=== PATIENT | male | born 1950 | race Caucasian/White ===

== ENCOUNTER 2018-05-08 10:32 | Outpatient (CLI) | payer MEDICARE ==
--- NOTE | 2018-05-08 13:27 | RAD ---
LUMBAR SPINE THREE VIEWS: Date: 05-08-18 History: Lumbar spine pain/back pain. Comparison: 07-17-11 FINDINGS: Neutral, lateral flexion and lateral extension radiographs are provided. The neutral lateral exam dem onstrates minimal retrolisthesis at L2-3 measuring approximately 5 mm. There is multilevel degenerative endplate change, disc space narrowing and anterior osteophyte format ion at the thoracolumbar junction. Body habitus limits detailed assessment. Multilevel lower lumbar s pine facet hypertrophic change seen. At L2-3, L3-4 and L5-S1 there is disc space narrowing and anterior osteophyte formation. Upon flexion , anterolisthesis is noted at the L3-4 level measuring 6 mm. The retrolisthesis at L2-3 is no longer visualized. With extension there is no anterolisthesis or retrolisthesis. IMPRESSION: Degenerative changes as detailed above. There is anterolisthesis upon flexion at L3-4 measuring in th e 6 mm range. POS: [facility]
== END 2018-05-08 10:33 | disposition home or self-care (01) ==
LOC: RAD 10:32
PROVIDERS: ATTEND Nurse Practitioner Family
DX: M43.16 Spondylolisthesis, lumbar region (principal); M47.816 Spondylosis without myelopathy or radiculopathy, lumbar region
CPT/HCPCS: 72100

== ENCOUNTER 2018-07-09 03:00 | Outpatient (CLI) | payer MEDICARE ==
[2018-07-09 11:45] LABS: Hemoglobin 13.2 g/dL (14.0-18.0); Mean Corpuscular HGB CONC 32.4 g/dL (32.0-36.0); Mean Corpuscular Hemoglobin 28.7 pg (27.0-31.0); Mean Corpuscular Volume 88.4 fL (78.0-98.0); Mean Platelet Volume 6.8 fL (7.4-10.4); Platelet Count 362 thou/uL (130-400); RBC Distribution Width 13.3 % (11.5-14.5); Red Blood Cell (RBC) Count 4.61 mill/uL (4.70-6.10); White Blood Cell (WBC) Count 12.2 thou/uL (4.8-10.8)
[2018-07-09 12:09] LABS: Anion Gap 12 mmol/L (10-20); BUN (Urea Nitrogen) 17 mg/dL (8.4-25.7); Calc. Creatinine Clearance 0 mL/min (70-130); Calcium 9.6 mg/dL (7.8-10.44); Carbon Dioxide 27 mmol/L (23-31); Chloride 104 mmol/L (98-107); Estimated GFR-MDRD 67; Glucose 99 mg/dL (80-115); Potassium 4.4 mmol/L (3.5-5.1); Sodium 139 mmol/L (136-145)
--- NOTE | 2018-07-11 08:55 | EKG ---
Test Reason : Blood Pressure : / mmHG Vent. Rate : 055 BPM Atrial Rate : 055 BPM P-R Int : 162 ms QRS Dur : 076 ms QT Int : 432 ms P-R-T Axes : 045 032 035 degrees QTc Int : 413 ms Sinus bradycardia Otherwise normal ECG No previous ECGs available Confirmed by DR. Javid PEREZ ([id number]) on 07/11/2018 8:54:52 AM Referred By: BONG Confirmed By:DR. Javid PEREZ
== END 2018-07-09 03:01 | disposition home or self-care (01) ==
LOC: LABBT 03:00
PROVIDERS: ATTEND Neurological Surgery
DX: Z01.818 Encounter for other preprocedural examination (principal); M54.16 Radiculopathy, lumbar region
CPT/HCPCS: 80048; 85027; 93005; 93010

== ENCOUNTER 2018-07-09 10:30 | Inpatient (IN) | payer MEDICARE ==
[2018-07-09 10:40] VITALS: BMI 43.0
[2018-07-16] MEDS ORDERED: CEFAZOLIN 2 GM/50 ML BAG ONE (07:10)
[2018-07-16] MEDS ORDERED: Sodium Chloride 0.9% 10 ML ONE (09:13)
[2018-07-16] MEDS ORDERED: Midazolam HCl 2 mg/2 ml Vial ONE (09:25)
[2018-07-16] MEDS ORDERED: Fentanyl 100 MCG/2 ML VIAL ONE ×3 (09:25→12:38)
[2018-07-16] MEDS ORDERED: Promethazine HCl 25 MG/ML VIAL SLOW IVP PRN (10:00)
[2018-07-16] MEDS ORDERED: Promethazine HCl 25 MG/ML VIAL IM PRN ×2 (10:00→13:40)
[2018-07-16] MEDS ORDERED: Ondansetron HCl/PF 4 MG/2 ML Vial IVP PRN (10:00)
--- NOTE | 2018-07-16 12:30 | OP ---
DATE OF PROCEDURE: 07/16/2018 SEXER: Destiny Hernandez PA-C PROCEDURE: L3-L4 laminectomy, interbody arthrodesis, intervertebral biomechanical device, local morselized autograft, demineralized bone matrix, posterolateral arthrodesis of L3-L4, pedicle screw instrumentation of L3-L4, left L4-L5 laminectomy and diskectomy. DESCRIPTION OF PROCEDURE: The patient was brought to the operating room and intubated. He was rolled in prone position on gel-filled chest rolls. An incision was made exposing L3 through L5 and the level was confirmed by x-ray. We performed complete L4 and inferior L3 laminectomy, so we can completely decompress the central spinal canal at L3-L4. We then exposed the left L4-L5 disk space via laminectomy and identified a superiorly migrated L4-L5 disk herniation and compressing the left L4 nerve. This disk herniation was removed. We next turned our attention to the L3-L4 disk, which was removed completely and the bony endplates were decorticated for the purpose of arthrodesis. An appropriate-sized intervertebral biomechanical PEEK device was brought into the field and filled with demineralized bone matrix, local morselized autograft, and tapped in place securely at L3-L4. Next, pedicle screws were placed at left L3 and left L4 using lateral fluoroscopic guidance, and positioning was confirmed by x-ray. The summer was secured between the screws and connected by nuts, which were final tightened. The wound was then extensively irrigated and maximum hemostasis was secured. Combination of demineralized bone matrix and local morselized autograft was laid to the right lamina and posterolateral surfaces for the purpose arthrodesis. Vancomycin powder was applied and the wound was closed in anatomic layers over a drain. Job ID: [id number]
[2018-07-16] MEDS ORDERED: Ondansetron PF 4 MG/2 ML Vial ONE (13:24)
[2018-07-16] MEDS ORDERED: Glycopyrrolate 0.2 MG/ML 5 ML SYRINGE ONE (13:24)
[2018-07-16] MEDS ORDERED: Rocuronium Bromide 10 MG/ML (10ML VIAL) ONE (13:24)
[2018-07-16] MEDS ORDERED: PROPOFOL 200 MG/20 ML VIAL ONE (13:24)
[2018-07-16] MEDS ORDERED: ePHEDrine 50 MG/ML VIAL ONE (13:24)
[2018-07-16] MEDS ORDERED: tiZANidine HCl 4 MG TAB PO PRN ×2 (13:39→13:40)
[2018-07-16] MEDS ORDERED: Promethazine HCl 12.5 MG SUPP PR PRN (13:40)
[2018-07-16] MEDS ORDERED: HYDROcodone/Acetaminophen 10/325 mg Tablet PO PRN (13:40)
[2018-07-16] MEDS ORDERED: Promethazine 25 MG TAB PO PRN (13:40)
[2018-07-16] MEDS ORDERED: diphenhydrAMINE 25 MG CAP PO PRN (13:40)
[2018-07-16] MEDS ORDERED: Morphine 4 MG/ML VIAL SLOW IVP PRN ×2 (13:40→13:42)
[2018-07-16] MEDS ORDERED: Milk Of Magnesia 30 ML UDCUP PO PRN (13:40)
[2018-07-16] MEDS ORDERED: Mag-Al 1200 mg/1200 mg/30 ML UDCUP PO PRN (13:40)
[2018-07-16] MEDS ORDERED: traMADol HCl 50 MG TAB PO PRN ×2 (13:40)
[2018-07-16] MEDS ORDERED: diphenhydrAMINE 50 MG/ML VIAL IVP PRN (13:40)
[2018-07-16] MEDS ORDERED: Acetaminophen/Codeine 30-300mg Tablet PO PRN (13:40)
[2018-07-16] MEDS ORDERED: Ketorolac Tromethamine 30 MG/ML VIAL IVP PRN (13:41)
[2018-07-16] MEDS ORDERED: Ondansetron PF 4 MG/2 ML Vial IM PRN (13:43)
[2018-07-16] MEDS ORDERED: CEFAZOLIN 2 GM/50 ML-DEXTROSE 2 GM in Premix Bag 1 BAG IVPB SCH (14:00)
[2018-07-16] MEDS: Sodium Chloride 0.9% 1,000 ML IV SCH (16:19)
[2018-07-16] MEDS: Gabapentin 300 MG CAP PO SCH ×2 (16:28→20:16)
[2018-07-16] MEDS: HYDROcodone/Acetaminophen 10/325 mg Tablet PO PRN (17:50)
[2018-07-16] MEDS: CEFAZOLIN 2 GM/50 ML-DEXTROSE 2 GM in Premix Bag 1 BAG IVPB SCH (17:51)
[2018-07-17] MEDS: CEFAZOLIN 2 GM/50 ML-DEXTROSE 2 GM in Premix Bag 1 BAG IVPB SCH ×2 (02:33→10:42)
[2018-07-17] MEDS: HYDROcodone/Acetaminophen 10/325 mg Tablet PO PRN (02:38)
[2018-07-17] MEDS: Sodium Chloride 0.9% 1,000 ML IV SCH (03:17)
[2018-07-17] MEDS: Gabapentin 300 MG CAP PO SCH (08:41)
[2018-07-17 11:28] VITALS: BP 114/71; TEMP 98.1
--- NOTE | 2018-07-17 21:13 | DIS ---
DATE OF ADMISSION: 07/16/2018 DATE OF DISCHARGE: 07/17/2018 The patient is a 68-year-old male status post L3-L4 decompression and fusion and left L4-L5 diskectomy. Following the surgery, he was transitioned to the [facility] floor, where his pain was well controlled with p.o. medications. He was tolerating regular diet and voiding appropriately. He has been ambulating easily throughout the hallways. He did have a JARAD drain placed intraoperatively with only 80 mL of output overnight. The patient is awake, alert, comfortable this morning. He has free active range of motion of all extremities, 5/5 strength throughout. He has normal reflexive. Sensation is intact to light touch. Dressing is dry. There is a small amount of dark red blood in the JARAD drain. We will plan to dismiss the patient to home following removal of the JARAD drain. I have discussed home care precautions. We will follow up in 2 weeks. Job ID: [id number]
== END 2018-07-17 12:40 | disposition home or self-care (01) | DRG 460 ==
LOC: SURG A 07-16 06:56 → EDSTATUS 07-16 10:30 → SURG B 07-16 12:41
PROVIDERS: ADMIT Neurological Surgery; ATTEND Neurological Surgery
PROC: 01NB0ZZ Release Lumbar Nerve, Open Approach (ICD-10-PCS; principal; 2018-07-16)
PROC: 0SG10AJ Fusion of 2 or more Lumbar Vertebral Joints with Interbody Fusion Device, Posterior Approach, Anterior Column, Open Approach (ICD-10-PCS; 2018-07-16)
PROC: 0ST20ZZ Resection of Lumbar Vertebral Disc, Open Approach (ICD-10-PCS; 2018-07-16)
DX: M54.16 Radiculopathy, lumbar region (principal); Z68.41 Body mass index [BMI] 40.0-44.9, adult; E66.01 Morbid (severe) obesity due to excess calories
CPT/HCPCS: 76000; C1713; C1768; J2250; J2270; J2405; J2704; J3010; J3370; J3490

== ENCOUNTER 2018-07-31 15:53 | Outpatient (CLI) | payer MEDICARE ==
--- NOTE | 2018-07-31 17:41 | RAD ---
TWO VIEWS LUMBAR SPINE 07/31/18 INDICATION: Followup surgery. COMPARISON: Prior lumbar spine radiograph dated 05/08/18. FINDINGS: There are laminectomy changes seen at L4 and laminotomy changes seen at L3. There is a left L3-4 post erior lumbar interbody fusion construct. There is an intervertebral disc cage seen left of midline at L3-4. There is surgical skin andrei overlying the posterior L3 through L5 level. There is scattered vascular calcifications. There is moderate spondylosis of the lumbar spine that again appears simila r. IMPRESSION: Interval posterior lumbar interbody fusion at L3-4 with laminectomy change at L4 and laminotomy maria e at L3. POS: [facility]
== END 2018-07-31 15:54 | disposition home or self-care (01) ==
LOC: TBSIIMAG 15:53
PROVIDERS: ATTEND Neurological Surgery
DX: M43.16 Spondylolisthesis, lumbar region (principal); Z98.1 Arthrodesis status
CPT/HCPCS: 72100

== ENCOUNTER 2018-09-17 10:08 | Outpatient (CLI) | payer MEDICARE ==
[~2018-09-17 10:08] MED LIST: Gadobenate Dimeglumine 529 MG/1 ML (20ML VIAL) ONE; Iopamidol 370 76% 100 ML VIAL ONE
--- NOTE | 2018-09-17 11:32 | CT ---
EXAM: CT chest with IV contrast CT abdomen with IV contrast PROVIDED CLINICAL HISTORY: Malignant neoplasm of rectum. Diarrhea and bleeding for 2 months. COMPARISON: None FINDINGS: CT thorax: Minimal linear atelectasis versus scarring is seen at the left lung base with mild bronchiectasis of a single bronchus in the left lower lobe in the region of linear scarring or atelectasis. The lungs are otherwise clear and no pulmonary nodule, mass, or pleural effusion is identified. There is no evidence of lymphadenopathy. There is a circumscribed 3.2 cm hypodense structure seen wit hin the posterior lower mediastinum which is adjacent to the esophagus and may actually be within the wall of the esophagus. 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 Vascular calcifications are seen in the coronary arteries and involving the thoracic aorta. Degenerative changes are seen in the spine. No lytic or sclerotic osseous lesions are appreciated. CT ABDOMEN: Multiple gallbladder calculi are visualized. A 1.5 cm hypodense lesion is seen in the posterior segment right hepatic lobe which does not demonstr ate characteristics compatible with a cyst. Solitary metastatic lesion should be considered. A 2.9 cm heterogeneous nodule is seen involving the left adrenal gland. This cannot be further charac terized without precontrast imaging. A 1.7 cm hypodense lesion in the midportion right kidney with 1.3 cm hypodense lesion midportion left kidney are visualized which demonstrate fluid attenuation compatible with bilateral renal cysts. The spleen, pancreas, right adrenal gland, and opacified small bowel demonstrate a normal CT appearan ce. Vascular calcifications and atherosclerotic plaque are seen in the abdominal aorta and involving visu alized iliac arteries. No enlarged lymph nodes are seen by CT size criteria. No free fluid or fluid collection is seen in th e abdomen. Degenerative changes are seen in the spine. There are postsurgical changes at the L3-4 level related to posterior fusion. Laminectomy defects are seen at these levels. IMPRESSION: 1. Hypodense lesion posterior segment right hepatic lobe which does not demonstrate characteristics s uggestive of a cyst. Solitary metastatic lesion should be considered. 2. Heterogeneous nodule left adrenal gland. Precontrast images are recommended for further characteri zation as a metastatic lesion cannot be excluded. 3. 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 4. No pulmonary nodule or mass is seen in the lungs bilaterally. 5. Bilateral renal cysts. 6. Cholelithiasis.
--- NOTE | 2018-09-17 15:18 | MRI ---
EXAM: MRI of the pelvis without and with contrast HISTORY: Rectal cancer staging COMPARISON: None TECHNIQUE: Multiplanar multisequence MR images were obtained of the pelvis without and with IV contra st. FINDINGS: There is a mass involving the rectum measuring 7.9 cm in length. Invasion of the mesorectal fat: Yes. Approximately 10 mm outside of the serosa of the rectum. Distance of mass from the anal verge: 4.7 cm Closest margin to the mesorectal fascia: 0.2 cm Involvement of adjacent organs: None Pelvic lymph nodes: There is a 9 mm left mesorectal fat lymph node. No pelvic sidewall enlarged lymph nodes are seen. Osseous structures: No marrow signal abnormality Other visualized intrapelvic structures: Unremarkable IMPRESSION: Rectal cancer as above. Staging: T stage: T3c N stage: N1a M stage: Mx
== END 2018-09-17 10:09 | disposition home or self-care (01) ==
LOC: SCSCT 10:08
PROVIDERS: ATTEND Internal Medicine Hematology & Oncology
DX: C20 Malignant neoplasm of rectum (principal); N28.1 Cyst of kidney, acquired; K80.20 Calculus of gallbladder without cholecystitis without obstruction; E27.9 Disorder of adrenal gland, unspecified
CPT/HCPCS: 71260; 72197; 74160

== ENCOUNTER 2018-09-23 13:21 | Outpatient (CLI) | payer MEDICARE ==
--- NOTE | 2018-09-23 13:46 | RAD ---
XR Lumbar Spine 2 Or 3 View: 09/23/2018 12:00 AM CLINICAL INDICATION: Lumbar radiculopathy, back pain, history of recent surgery COMPARISON: None. FINDINGS: Fracture:No fracture. Postoperative fusion of L4-5 with intervening disc space prosthesis is present, with a left vertical summer and left L4 and L5 pedicle screws present, similar appearing, without interval, acute hardware complication. Mild right convexed curvature centered at the upper lumbar spine. Incidental findings:Atherosclerosis IMPRESSION: 1. Stable postoperative lumbar spine.
== END 2018-09-23 13:22 | disposition home or self-care (01) ==
LOC: TBSIIMAG 13:21
PROVIDERS: ATTEND Neurological Surgery
DX: M54.16 Radiculopathy, lumbar region (principal); Z98.890 Other specified postprocedural states
CPT/HCPCS: 72100

== ENCOUNTER 2018-09-24 07:55 | Day surgery (SDC) | payer MEDICARE ==
[2018-09-23 12:35] VITALS: BMI 37.3
[2018-09-24 08:15] LABS: #Basophils 0.1 thou/uL (0.0-0.2); #Eosinphils 0.3 thou/uL (0.0-0.7); #Lymphocytes 2.3 thou/uL (1.20-3.40); #Monocytes 1.1 thou/uL (0.11-0.59); #Neutrophils 7.5 thou/uL (1.40-6.50); %Basophils 0.8 % (0.0-1.0); %Eosinophils 2.3 % (0.0-10.0); %Lymphocytes 20.1 % (21.0-51.0); %Monocytes 9.8 % (0.0-10.0); %Neutrophils 66.9 % (42.0-75.0); Hemoglobin 12.1 g/dL (14.0-18.0); Mean Corpuscular HGB CONC 31.4 g/dL (32.0-36.0); Mean Corpuscular Hemoglobin 26.3 pg (27.0-31.0); Mean Corpuscular Volume 83.8 fL (78.0-98.0); Platelet Count 390 thou/uL (130-400); RBC Distribution Width 13.1 % (11.5-14.5); Red Blood Cell (RBC) Count 4.62 mill/uL (4.70-6.10); White Blood Cell (WBC) Count 11.2 thou/uL (4.8-10.8)
[2018-09-24 08:18] LABS: PTT 27.1 SEC (22.9-36.1); Prothrombin Time 12.8 SEC (12.0-14.7)
[2018-09-24] MEDS ORDERED: Iopamidol 370 76% 100 ML VIAL ONE (11:01)
--- NOTE | 2018-09-24 11:17 | CT ---
CT of abdomen with and without IV contrast: HISTORY: Rectal cancer. Mass. FINDINGS: Minimal atelectasis at the left posterior lung base. The right paraesophageal nonenhancing lesion is partially visualized, stable compared to recent CT exam. Gas containing stones within the gallbladder lumen. The nonenhancing oval low-density lesion within t he lateral aspect of the anterior segment right liver lobe shows subtle peripheral enhancement. It is 0.8 cm length by 1.6 cm depth by 1.2 cm width. Well-circumscribed oval low-density mass of the left adrenal gland is again demonstrated. It is 2.4 c m length by 2.3 cm depth by 2.1 cm width. Precontrast Hounsfield unit measurement equals 2. Arterial phase enhancement equals 44. 15 minute delayed enhancement equals 14. Measurements are consi stent with an adrenal adenoma. Small cysts of the kidneys. Degenerative and postoperative changes lumbar spine. Calcification in the arterial structures. IMPRESSION: 1.Left adrenal mass demonstrates CT characteristics of an adenoma. 2.Low-density liver mass again demonstrated. It was biopsied on the same day. Pathology is pending. 3.Cholelithiasis. 4.Atherosclerosis. Transcribed Date/Time: 09/24/2018 11:38 AM
--- NOTE | 2018-09-24 11:24 | CT ---
CT-guided liver mass biopsy: HISTORY: Liver mass. Rectal cancer. FINDINGS: After explaining the procedure and answering all questions, Limited CT imaging of the liver was perfo rmed. Low density mass was seen within the anterior segment right liver lobe. Sterile technique, buffered local anesthesia, CT guidance, and a lateral approach were used carefully advance a 17-gauge trocar needle into the low density mass. Position was confirmed with CT. A total of 6 18-gauge core biopsy. Specimens were obtained and submitted to Dr. Bernabe from pathology. While the initial samples showed normal liver tissue, the latter samples were shown to contain atypical cells. Needle was removed. Postprocedure imaging shows no evidence of complication. Patient tolerated the pr ocedure well and was returned to the holding area in good condition for further monitoring. IMPRESSION: Technically successful CT-guided biopsy liver mass. Pathology is pending. Transcribed Date/Time: 09/24/2018 11:46 AM
== END 2018-09-24 11:45 | disposition home or self-care (01) ==
LOC: CT 07:55 → EDSTATUS 10:00 → CT 11:45
PROVIDERS: ATTEND Internal Medicine Hematology & Oncology
PROC: 0FB13ZX Excision of Right Lobe Liver, Percutaneous Approach, Diagnostic (ICD-10-PCS; principal; 2018-09-24)
DX: D49.0 Neoplasm of unspecified behavior of digestive system (principal); C20 Malignant neoplasm of rectum; I70.90 Unspecified atherosclerosis; K80.20 Calculus of gallbladder without cholecystitis without obstruction; E27.8 Other specified disorders of adrenal gland; Z79.899 Other long term (current) drug therapy; Z98.1 Arthrodesis status; Z98.890 Other specified postprocedural states
CPT/HCPCS: 36415; 47000; 74170; 77002; 82565; 85025; 85610; 85730; 88307; 88333; 88334; J2250; J3010; Q9967

== ENCOUNTER 2018-09-26 10:06 | Day surgery (SDC) | payer MEDICARE ==
[2018-09-25 12:59] VITALS: BMI 37.2
[~2018-09-26 10:06] MED LIST changes: +Fentanyl 100 MCG/2 ML VIAL ONE; -Gadobenate Dimeglumine 529 MG/1 ML (20ML VIAL) ONE; -Iopamidol 370 76% 100 ML VIAL ONE; +Midazolam HCl 2 mg/2 ml Vial ONE; +Sodium Bicarbonate 2.5 MEQ/5 ML VIAL ONE; +Sodium Chloride 0.9% 10 ML ONE
[2018-09-26] MEDS ORDERED: Bupivacaine/Epinephrine 0.25% 30 ML VIAL ONE (11:26)
[2018-09-26] MEDS ORDERED: Lidocaine 2% PF 5 ML VIAL ONE (11:26)
[2018-09-26] MEDS ORDERED: Propofol 500 MG/50 ML VIAL ONE (11:31)
[2018-09-26] MEDS ORDERED: Fentanyl 100 MCG/2 ML VIAL ONE (11:31)
--- NOTE | 2018-09-26 13:02 | RAD ---
SINGLE VIEW CHEST: Date: 09/26/18 COMPARISON: None. HISTORY: MediPort placement. FINDINGS: Single view of chest shows normal sized cardiomediastinal silhouette. There is a left subclavian Medi Port with its tip at the superior vena cava. No pneumothorax is seen. There is no evidence of consoli dation, mass, or pleural effusion. IMPRESSION: No evidence of acute cardiopulmonary disease. POS: [facility]
[2018-09-26] MEDS ORDERED: PROPOFOL 200 MG/20 ML VIAL ONE (16:22)
--- NOTE | 2018-09-26 16:23 | PDOC.OP ---
Operative Note - Operative Note Operative Note: PROCEDURE: Left subclavian MediPort placement DATE OF PROCEDURE: 09/26/2018 SURGEON: Lan Issa M.D. PREOPERATIVE DIAGNOSIS: Metastatic rectal cancer POSTOPERATIVE DIAGNOSIS: Metastatic rectal cancer HISTORY: Patient has been diagnosed with rectal cancer metastatic to the right liver. Chemotherapy has been recommended and a Mediport has been requested for this. OPERATIVE PROCEDURE IN DETAIL: After informed consent was obtained and appropriate preoperative antibiotics administered, the patient was taken to the operating room and placed in supine position and monitored anesthesia care was administered. The patient was then placed in Trendelenburg position and the subclavian vein accessed easily on the first attempt with excellent flow of dark venous non-pulsatile blood. A wire threaded easily and was confirmed to be in the superior vena cava by fluoroscopy. Additional local anesthesia was infused to the skin and subcutaneous tissues lateral and inferior to the access site. The skin incision was extended from the wire laterally and a subcutaneous pocket developed inferiorly. A Mediport was obtained and confirmed to fit in the subcutaneous pocket. This was secured inferiorly to the pectoralis fascia with a Prolene suture, which was clamped, but not tied. The dilator and sheath were then placed over the wire and the dilator and wire removed leaving the sheath in place. The clamped MediPort tubing was tunneled through the sheath, which was then split and removed leaving the MediPort tubing in place. The tubing was adjusted until the tip was confirmed by fluoroscopy to be in the superior vena cava just above the atrium. The tubing was clamped at the skin level and cut and the tubing secured to the port, which was then placed in the subcutaneous pocket. The previously placed suture was secured and two additional sutures were placed to fix the port in place within the pocket. The port was aspirated with the Torres needle and had excellent flow of dark venous non-pulsatile blood and easily flushed without resistance. The subcutaneous tissues were closed with a running Monocryl suture , following which the skin was closed with a running subcuticular Monocryl suture. Dermabond dressings were placed and the hub was again accessed through the skin and confirmed to easily aspirate and easily flush. The course of the catheter was confirmed by fluoroscopy to be smooth with the tip appropriately located in the superior vena cava. The patient was taken back to the day stay unit in good condition. Estimated blood loss was minimal. There were no complications. There were no specimens.
== END 2018-09-26 13:30 | disposition home or self-care (01) ==
LOC: SDC 10:06
PROVIDERS: ATTEND Surgery
PROC: 0JH63WZ Insertion of Totally Implantable Vascular Access Device into Chest Subcutaneous Tissue and Fascia, Percutaneous Approach (ICD-10-PCS; principal; 2018-09-26)
DX: C20 Malignant neoplasm of rectum (principal); C78.7 Secondary malignant neoplasm of liver and intrahepatic bile duct; G89.29 Other chronic pain; M54.5 Low back pain; Z87.891 Personal history of nicotine dependence; Z79.899 Other long term (current) drug therapy
CPT/HCPCS: 36561; 71045; C1788; J0690; J1642; J2001; J2704; J3010

== ENCOUNTER 2019-05-25 13:00 | Outpatient (CLI) | payer MEDICARE ==
--- NOTE | 2019-05-25 14:50 | CT ---
Exam: Chest CT with contrast Abdomen CT with contrast COMPARISON: 09/17/2018 Correlation: CT liver biopsy 09/24/2018 FINDINGS: Chest CT: HEART: No significant pericardial fluid. Normal heart size Aorta: The visualized aorta has a normal caliber. Minimal atherosclerosis. No periaortic fat strandin g Mediastinum: No mass, lymphadenopathy or hematoma. Stable hypodensity adjacent to the esophagus, sarkis uring 2.6 x 2.6 cm. Previously, this lesion has been reported to be a esophageal duplication cyst. Trachea and central bronchi: Patent Pleural spaces: No significant pleural fluid Pneumothorax: None Right lung: Nonspecific 4 mm nodule in the right upper lobe. No suspicious masses or consolidation. M inimal atelectatic change in the right lower lobe. Left lung: No suspicious masses or nodules. Small bleb in the left lower lobe measuring 0.8 cm. Adjac ent focal bronchiectasis. Abdomen CT: Gallbladder: CT evidence of cholelithiasis without evidence of cholecystitis Portal vein is patent Spleen, pancreas and right adrenal gland are unremarkable. Redemonstration of a mass occupying the le ft adrenal gland, unchanged in size. Mass measures 2.1 x 2.8 cm. There is an abnormal mass measured 2.0 x 3.0 cm. Peripherally noted lesion in the posterior segment of the right hepatic lobe is less evident. No new hepatic lesions are appreciated Lymph nodes: No gastrohepatic, retrocrural or periportal lymphadenopathy. No mesenteric mass, nephrop athy, free air or free fluid Symmetric enhancement the kidneys. Bilaterally no obstructive uropathy. Redemonstration of hypodense lesions in the left or right kidney, unchanged. Right renal lesion measures 1.6 x 1.6 cm. Left renal lesion measures 1.0 x 1.0 cm. Alimentary canal: No evidence of bowel obstruction No lytic or blastic lesions within the osseous structures IMPRESSION: 1. 4 mm nodule in the right upper lobe. 2. Essentially stable left adrenal mass. 3. Stable esophageal duplication cyst. 4. Previously hypodense lesion in the right hepatic lobe is no longer evident. Findings would imply r esponse to therapy. No new hepatic masses are appreciated.
--- NOTE | 2019-05-25 16:06 | MRI ---
MRI PELVIS WITH AND WITHOUT CONTRAST: Date: 05/25/19 HISTORY: Malignant neoplasm of rectum. COMPARISON: MRI dated 09/17/18. FINDINGS: The erosive central necrotic mass of the rectum is very similar in cranial caudad length although has progressive extra-serosal. There is extension through the serosa invading the mesorectal fat involvi ng the right mesorectal fascia. There is also some mild hyperenhancement of the right piriformis musc le. The extraserosal and mesorectal fat involvement has increased. The posterior left mesorectal lymph node is no longer enlarged. Radiation changes of the marrow of th e pelvis. IMPRESSION: 1. The low rectal mass now involves the right sided mesorectal fascia from 7 o'clock-9 o'clock, whic h it previously had not, and also involves the right piriformis muscle. 2. Treated posterior mesorectal lymph node is no longer enlarged. 3. Radiation changes of the marrow of the pelvis. POS: [facility]
== END 2019-05-25 13:01 | disposition home or self-care (01) ==
LOC: TBSIIMAG 13:00
PROVIDERS: ATTEND Internal Medicine Hematology & Oncology
DX: C20 Malignant neoplasm of rectum (principal); C78.7 Secondary malignant neoplasm of liver and intrahepatic bile duct; R91.1 Solitary pulmonary nodule; E27.8 Other specified disorders of adrenal gland; K22.8 Other specified diseases of esophagus; K76.9 Liver disease, unspecified
CPT/HCPCS: 71260; 72197; 74160

== ENCOUNTER 2022-05-11 09:55 | Inpatient (IN) | payer MEDICARE ==
[2022-05-11 10:16] LABS: #Eosinphils 0.1 thou/uL (0.0-0.7); #Lymphocytes 1.4 thou/uL (1.20-3.40); %Eosinophils 0.5 % (0.0-10.0); %Lymphocytes 7.4 % (21.0-51.0); %Monocytes 5.4 % (0.0-10.0); %Neutrophils 86.8 % (42.0-75.0); Hemoglobin 14.8 g/dL (14.0-18.0); Mean Corpuscular HGB CONC 32.7 g/dL (32.0-36.0); Mean Corpuscular Volume 94.9 fl (78.0-98.0); Mean Platelet Volume 7.4 fL (7.4-10.4); Platelet Count 284 10x3/uL (130-400); RBC Distribution Width 13.1 % (11.5-14.5); Red Blood Cell (RBC) Count 4.78 mill/uL (4.70-6.10); White Blood Cell (WBC) Count 18.5 10x3/uL (4.8-10.8)
[2022-05-11] MEDS ORDERED: FENTANYL 50 MCG/ML 1 ML VIAL ONE (10:19)
[2022-05-11] MEDS ORDERED: Midazolam HCl 2 mg/2 ml Vial ONE (10:20)
[2022-05-11 10:29] LABS: Prothrombin Time 13.2 sec (12.0-14.7)
[2022-05-11 10:41] LABS: ALT (SGPT) 52 U/L (8-55); AST (SGOT) 84 U/L (5-34); Alkaline Phosphatase 84 U/L (40-110); Anion Gap 13 mmol/L (10-20); BUN (Urea Nitrogen) 18 mg/dL (8.4-25.7); Bilirubin, Total 0.4 mg/dL (0.2-1.2); Calc. Creatinine Clearance 0 mL/min (70-130); Calcium 9.3 mg/dL (7.8-10.44); Carbon Dioxide 27 mmol/L (23-31); Chloride 105 mmol/L (98-107); Estimated GFR 53; Globulin 3.2 g/dL (2.4-3.5); Glucose 209 mg/dL (83-110); Potassium 4.8 mmol/L (3.5-5.1); Protein, Total 7.2 g/dL (5.8-8.1); Sodium 140 mmol/L (136-145)
[2022-05-11] MEDS ORDERED: TICAGRELOR 90 MG TABLET ONE (10:45)
[2022-05-11] MEDS ORDERED: Morphine 4 MG/ML VIAL SLOW IVP PRN ×2 (11:57→12:21)
[2022-05-11] MEDS ORDERED: Nitroglycerin 0.4 MG TAB (25 Tab Bottle) SL PRN (11:57)
[2022-05-11] MEDS ORDERED: Sodium Chloride 0.9% 1,000 ML IV SCH (12:00)
[2022-05-11] MEDS ORDERED: Iopamidol 370 76% 100 ML VIAL ONE (12:03)
[2022-05-11] MEDS ORDERED: Iopamidol 370 76% 50 ML VIAL FS ONE (12:03)
[2022-05-11 14:56] VITALS: BMI 50.3
[2022-05-11] MEDS ORDERED: FLU VACC QS2022-23(65YR UP)/PF 240 MCG/0.7 ML SYRINGE IM ONE (15:15)
[2022-05-11] MEDS: Carvedilol 3.125 MG TAB PO SCH (17:16)
[2022-05-11 17:20] LABS: Troponin I 242.561 ng/mL (< 0.028)
[2022-05-11] MEDS: Gabapentin 300 MG CAP PO SCH (20:47)
[2022-05-11] MEDS: TICAGRELOR 90 MG TABLET PO SCH (20:48)
[2022-05-11 23:46] LABS: Critical Call Chem Troponin I RESULT DECREASING
[2022-05-12] MEDS ORDERED: Morphine 4 MG/ML VIAL SLOW IVP SCH (01:00)
[2022-05-12 04:10] LABS: #Eosinphils 0.1 thou/uL (0.0-0.7); #Lymphocytes 0.9 thou/uL (1.20-3.40); #Monocytes 2.3 thou/uL (0.11-0.59); #Neutrophils 16.2 thou/uL (1.40-6.50); %Eosinophils 0.4 % (0.0-10.0); %Lymphocytes 4.6 % (21.0-51.0); %Monocytes 11.6 % (0.0-10.0); %Neutrophils 83.4 % (42.0-75.0); Hemoglobin 13.7 g/dL (14.0-18.0); Mean Corpuscular Hemoglobin 30.6 pg (27.0-31.0); Mean Corpuscular Volume 95.9 fl (78.0-98.0); Mean Platelet Volume 7.8 fL (7.4-10.4); Platelet Count 255 10x3/uL (130-400); RBC Distribution Width 13.4 % (11.5-14.5); Red Blood Cell (RBC) Count 4.46 mill/uL (4.70-6.10); White Blood Cell (WBC) Count 19.4 10x3/uL (4.8-10.8)
[2022-05-12 04:28] LABS: Hemoglobin A1c 6.4 % (4.0-6.0)
[2022-05-12 04:38] LABS: ALT (SGPT) 71 U/L (8-55); AST (SGOT) 162 U/L (5-34); Albumin 3.8 g/dL (3.4-4.8); Alkaline Phosphatase 74 U/L (40-110); Anion Gap 15 mmol/L (10-20); BUN (Urea Nitrogen) 17 mg/dL (8.4-25.7); Bilirubin, Total 0.8 mg/dL (0.2-1.2); Calc. Creatinine Clearance 89 mL/min (70-130); Calcium 8.9 mg/dL (7.8-10.44); Carbon Dioxide 23 mmol/L (23-31); Cardiac Risk 4.4 (Less than 4.5); Chloride 103 mmol/L (98-107); Cholesterol 194 mg/dl (< 200 Desired); Estimated GFR 54; Glucose 164 mg/dL (83-110); HDL Cholesterol 44 mg/dL (>60 Neg Risk); LDL Cholesterol, Calculated 133 mg/dL; Protein, Total 6.8 g/dL (5.8-8.1); Sodium 136 mmol/L (136-145); Triglycerides 87 mg/dL (Less than 150)
[2022-05-12 04:44] LABS: Critical Call Chem Troponin I RESULT DECREASING; Troponin I 145.733 ng/mL (< 0.028)
[2022-05-12] MEDS ORDERED: Carvedilol 6.25 MG TAB PO SCH (08:45)
[2022-05-12] MEDS ORDERED: Morphine 4 MG/ML VIAL SLOW IVP PRN (08:46)
[2022-05-12] MEDS: Aspirin Chewable 81 MG TAB PO SCH (08:51)
[2022-05-12] MEDS: Furosemide 20 MG TAB PO SCH (08:51)
[2022-05-12] MEDS: TICAGRELOR 90 MG TABLET PO SCH ×2 (08:51→20:18)
[2022-05-12] MEDS: Gabapentin 300 MG CAP PO SCH ×2 (09:50→20:18)
[2022-05-12] MEDS: Gabapentin 100 MG CAP PO SCH (13:50)
[2022-05-12] MEDS: Carvedilol 6.25 MG TAB PO SCH (17:35)
[2022-05-12] MEDS: Atorvastatin Calcium 40 MG TAB PO SCH (20:18)
[2022-05-13 05:18] LABS: Anion Gap 12 mmol/L (10-20); BUN (Urea Nitrogen) 22 mg/dL (8.4-25.7); Calc. Creatinine Clearance 85 mL/min (70-130); Calcium 8.9 mg/dL (7.8-10.44); Carbon Dioxide 27 mmol/L (23-31); Chloride 99 mmol/L (98-107); Estimated GFR 51; Glucose 131 mg/dL (83-110); Potassium 4.3 mmol/L (3.5-5.1); Sodium 134 mmol/L (136-145)
[2022-05-13] MEDS: Furosemide 20 MG TAB PO SCH (09:19)
[2022-05-13] MEDS: Aspirin Chewable 81 MG TAB PO SCH (09:19)
[2022-05-13] MEDS: Carvedilol 6.25 MG TAB PO SCH ×2 (09:19→18:27)
[2022-05-13] MEDS: Gabapentin 300 MG CAP PO SCH ×2 (09:19→20:42)
[2022-05-13] MEDS: TICAGRELOR 90 MG TABLET PO SCH ×2 (09:20→20:41)
[2022-05-13] MEDS: Gabapentin 100 MG CAP PO SCH (13:35)
[2022-05-13] MEDS: Atorvastatin Calcium 40 MG TAB PO SCH (20:41)
[2022-05-14 05:28] LABS: Anion Gap 11 mmol/L (10-20); BUN (Urea Nitrogen) 25 mg/dL (8.4-25.7); Calc. Creatinine Clearance 101 mL/min (70-130); Calcium 8.8 mg/dL (7.8-10.44); Carbon Dioxide 29 mmol/L (23-31); Chloride 98 mmol/L (98-107); Estimated GFR 63; Glucose 141 mg/dL (83-110); Potassium 3.9 mmol/L (3.5-5.1); Sodium 134 mmol/L (136-145)
[2022-05-14] MEDS: Carvedilol 6.25 MG TAB PO SCH ×2 (09:58→16:33)
[2022-05-14] MEDS: TICAGRELOR 90 MG TABLET PO SCH ×2 (09:59→20:47)
[2022-05-14] MEDS: Furosemide 20 MG TAB PO SCH (09:59)
[2022-05-14] MEDS: Gabapentin 300 MG CAP PO SCH ×2 (09:59→20:47)
[2022-05-14] MEDS: Aspirin Chewable 81 MG TAB PO SCH (09:59)
[2022-05-14] MEDS ORDERED: Electrolyte Replacement Protocol 1 EACH FS SCH (10:00)
[2022-05-14] MEDS ORDERED: Electrolyte Replacement Protocol FS PRN (10:00)
[2022-05-14] MEDS: Gabapentin 100 MG CAP PO SCH (11:30)
[2022-05-14] MEDS: Carvedilol 3.125 MG TAB PO SCH (12:06)
[2022-05-14] MEDS ORDERED: Magnesium 2 GM/50 ML(in water) 2 GM in Premix Bag 1 BAG IVPB SCH (13:00)
[2022-05-14] MEDS ORDERED: Calcium Carbonate 500 MG ChewTAB PO PRN (19:36)
[2022-05-14] MEDS ORDERED: Communication Order-Pharmacy FS SCH (19:45)
[2022-05-14] MEDS ORDERED: Calcium Carbonate 500 MG ChewTAB PO SCH (20:30)
[2022-05-14] MEDS: Famotidine 20 MG TAB PO SCH (20:47)
[2022-05-14] MEDS: Atorvastatin Calcium 40 MG TAB PO SCH (20:47)
[2022-05-15 04:39] LABS: #Eosinphils 0.4 thou/uL (0.0-0.7); #Lymphocytes 1.2 thou/uL (1.20-3.40); #Monocytes 1.2 thou/uL (0.11-0.59); #Neutrophils 9.6 thou/uL (1.40-6.50); %Basophils 0.3 % (0.0-1.0); %Eosinophils 3.3 % (0.0-10.0); %Lymphocytes 9.7 % (21.0-51.0); %Monocytes 9.9 % (0.0-10.0); %Neutrophils 76.8 % (42.0-75.0); Hemoglobin 13.5 g/dL (14.0-18.0); Mean Corpuscular HGB CONC 32.5 g/dL (32.0-36.0); Mean Corpuscular Hemoglobin 30.7 pg (27.0-31.0); Mean Corpuscular Volume 94.4 fl (78.0-98.0); Mean Platelet Volume 8.3 fL (7.4-10.4); Platelet Count 250 10x3/uL (130-400); RBC Distribution Width 13.2 % (11.5-14.5); White Blood Cell (WBC) Count 12.5 10x3/uL (4.8-10.8)
[2022-05-15 05:02] LABS: Anion Gap 15 mmol/L (10-20); BUN (Urea Nitrogen) 25 mg/dL (8.4-25.7); Calc. Creatinine Clearance 100 mL/min (70-130); Calcium 8.7 mg/dL (7.8-10.44); Carbon Dioxide 26 mmol/L (23-31); Chloride 100 mmol/L (98-107); Estimated GFR 62; Glucose 123 mg/dL (83-110); Sodium 137 mmol/L (136-145)
[2022-05-15] MEDS: Furosemide 20 MG TAB PO SCH (05:04)
[2022-05-15] MEDS: Gabapentin 300 MG CAP PO SCH ×3 (05:04→21:20)
[2022-05-15] MEDS: Carvedilol 6.25 MG TAB PO SCH ×2 (05:04→17:16)
[2022-05-15 05:06] LABS: ALT (SGPT) 29 U/L (8-55); AST (SGOT) 19 U/L (5-34); Albumin 3.4 g/dL (3.4-4.8); Alkaline Phosphatase 72 U/L (40-110); Bilirubin, Direct 0.3 mg/dL (0.1-0.3); Bilirubin, Total 0.7 mg/dL (0.2-1.2); Protein, Total 6.5 g/dL (5.8-8.1)
[2022-05-15] MEDS ORDERED: Sodium Chloride 0.9% 1,000 ML IV SCH ×2 (06:00→08:15)
[2022-05-15] MEDS ORDERED: Lidocaine 1% (PF) 30 ML VIAL ONE (06:24)
[2022-05-15] MEDS ORDERED: Heparin 25,000 units/D5W 0 ML ONE (06:24)
[2022-05-15] MEDS ORDERED: Heparin 10,000 UNITS/ 10 ML VIAL ONE (06:25)
[2022-05-15] MEDS ORDERED: FENTANYL 50 MCG/ML 1 ML VIAL ONE (07:03)
[2022-05-15] MEDS ORDERED: Atropine Sulfate 1 mg/10 ml Syringe ONE (07:04)
[2022-05-15] MEDS ORDERED: Midazolam HCl 2 mg/2 ml Vial ONE (07:04)
[2022-05-15] MEDS ORDERED: Nitroglycerin 100MG/250ML BOT 250 ML ONE (07:18)
[2022-05-15] MEDS ORDERED: Bivalirudin 250 MG VIAL ONE (07:48)
[2022-05-15] MEDS ORDERED: Iopamidol 370 76% 100 ML VIAL ONE (15:50)
[2022-05-15] MEDS: Aspirin Chewable 81 MG TAB PO SCH (17:14)
[2022-05-15] MEDS: Famotidine 20 MG TAB PO SCH ×2 (17:14→21:19)
[2022-05-15] MEDS: Gabapentin 100 MG CAP PO SCH (17:15)
[2022-05-15] MEDS: TICAGRELOR 90 MG TABLET PO SCH ×2 (17:15→21:20)
[2022-05-15] MEDS: Atorvastatin Calcium 40 MG TAB PO SCH (21:19)
[2022-05-16 04:46] LABS: #Basophils 0.1 thou/uL (0.0-0.2); #Eosinphils 0.5 thou/uL (0.0-0.7); #Lymphocytes 1.3 thou/uL (1.20-3.40); #Monocytes 1.4 thou/uL (0.11-0.59); #Neutrophils 11.8 thou/uL (1.40-6.50); %Basophils 0.3 % (0.0-1.0); %Eosinophils 3.5 % (0.0-10.0); %Lymphocytes 8.5 % (21.0-51.0); %Monocytes 9.4 % (0.0-10.0); %Neutrophils 78.3 % (42.0-75.0); Hemoglobin 14.8 g/dL (14.0-18.0); Mean Corpuscular HGB CONC 32.5 g/dL (32.0-36.0); Mean Corpuscular Hemoglobin 30.2 pg (27.0-31.0); Mean Corpuscular Volume 92.9 fl (78.0-98.0); Mean Platelet Volume 8.2 fL (7.4-10.4); Platelet Count 336 10x3/uL (130-400); RBC Distribution Width 13.4 % (11.5-14.5)
[2022-05-16 05:07] LABS: ALT (SGPT) 27 U/L (8-55); AST (SGOT) 22 U/L (5-34); Albumin 3.8 g/dL (3.4-4.8); Alkaline Phosphatase 79 U/L (40-110); Anion Gap 16 mmol/L (10-20); BUN (Urea Nitrogen) 23 mg/dL (8.4-25.7); Bilirubin, Total 0.9 mg/dL (0.2-1.2); Calc. Creatinine Clearance 90 mL/min (70-130); Calcium 9.1 mg/dL (7.8-10.44); Carbon Dioxide 21 mmol/L (23-31); Chloride 102 mmol/L (98-107); Estimated GFR 55; Globulin 3.6 g/dL (2.4-3.5); Glucose 149 mg/dL (83-110); Protein, Total 7.4 g/dL (5.8-8.1); Sodium 135 mmol/L (136-145)
[2022-05-16 10:04] LABS: Magnesium 2.4 mg/dL (1.6-2.6)
[2022-05-16] MEDS: Famotidine 20 MG TAB PO SCH ×2 (12:05→20:12)
[2022-05-16] MEDS: Gabapentin 300 MG CAP PO SCH (12:05)
[2022-05-16] MEDS: Aspirin Chewable 81 MG TAB PO SCH (12:05)
[2022-05-16] MEDS: Carvedilol 6.25 MG TAB PO SCH ×2 (12:05→17:44)
[2022-05-16] MEDS: TICAGRELOR 90 MG TABLET PO SCH ×2 (12:06→20:13)
[2022-05-16] MEDS: Gabapentin 100 MG CAP PO SCH (12:39)
[2022-05-16] MEDS ORDERED: Loperamide HCl 2 MG CAP PO PRN (16:48)
[2022-05-16] MEDS: Atorvastatin Calcium 40 MG TAB PO SCH (20:12)
[2022-05-17] MEDS: Carvedilol 6.25 MG TAB PO SCH (10:22)
[2022-05-17] MEDS: TICAGRELOR 90 MG TABLET PO SCH (10:23)
[2022-05-17] MEDS: Furosemide 20 MG TAB PO SCH (10:23)
[2022-05-17] MEDS: Famotidine 20 MG TAB PO SCH (10:23)
[2022-05-17] MEDS: Gabapentin 300 MG CAP PO SCH (10:23)
[2022-05-17] MEDS: Aspirin Chewable 81 MG TAB PO SCH (10:24)
[2022-05-17 12:34] VITALS: BP 144/80; TEMP 98
[2022-05-17] MEDS: Gabapentin 100 MG CAP PO SCH (15:20)
== END 2022-05-17 16:00 | disposition home or self-care (01) | DRG 247 ==
LOC: ERS 09:55 → CCL 10:15 → 2NO 10:15 → CCU 14:47 → 2NO 05-12 10:32
PROVIDERS: ADMIT Hospitalist; ATTEND Hospitalist
PROC: 4A023N7 Measurement of Cardiac Sampling and Pressure, Left Heart, Percutaneous Approach (ICD-10-PCS; 2022-05-11)
PROC: B2151ZZ Fluoroscopy of Left Heart using Low Osmolar Contrast (ICD-10-PCS; 2022-05-11)
PROC: B2111ZZ Fluoroscopy of Multiple Coronary Arteries using Low Osmolar Contrast (ICD-10-PCS; 2022-05-11)
PROC: 027135Z Dilation of Coronary Artery, Two Arteries with Two Drug-eluting Intraluminal Devices, Percutaneous Approach (ICD-10-PCS; principal; 2022-05-15)
DX: I21.09 ST elevation (STEMI) myocardial infarction involving other coronary artery of anterior wall (principal); Z68.42 Body mass index [BMI] 45.0-49.9, adult; N17.9 Acute kidney failure, unspecified; G89.29 Other chronic pain; M54.9 Dorsalgia, unspecified; E66.9 Obesity, unspecified; G62.0 Drug-induced polyneuropathy; I25.10 Atherosclerotic heart disease of native coronary artery without angina pectoris; E66.01 Morbid (severe) obesity due to excess calories; N18.2 Chronic kidney disease, stage 2 (mild); E11.22 Type 2 diabetes mellitus with diabetic chronic kidney disease; I25.5 Ischemic cardiomyopathy; I12.9 Hypertensive chronic kidney disease with stage 1 through stage 4 chronic kidney disease, or unspecified chronic kidney disease; E78.5 Hyperlipidemia, unspecified; E11.65 Type 2 diabetes mellitus with hyperglycemia; R19.7 Diarrhea, unspecified; Z28.21 Immunization not carried out because of patient refusal; Z98.890 Other specified postprocedural states; Z79.899 Other long term (current) drug therapy; Z87.891 Personal history of nicotine dependence; Z85.048 Personal history of other malignant neoplasm of rectum, rectosigmoid junction, and anus; Z92.21 Personal history of antineoplastic chemotherapy; T45.1X5S Adverse effect of antineoplastic and immunosuppressive drugs, sequela; Z82.49 Family history of ischemic heart disease and other diseases of the circulatory system
CPT/HCPCS: 36415; 80048; 80053; 80061; 80076; 83036; 83735; 84484; 85025; 85347; 85610; 85730; 87324; 87449; 87811; 92928; 92929; 92941; 93005; 93010; 93458; 93798; 99152; 99153; C1725; C1769; C1874; C1876; C1887; C9600; C9601; C9606; J0461; J0583; J1644; J2001; J2250; J2270; J3010; J3475; J7050; Q9967

== ENCOUNTER 2022-12-27 17:44 | Inpatient (IN) | payer MEDICARE ==
[2022-12-27 18:21] LABS: #Eosinphils 0.1 thou/uL (0.0-0.7); #Monocytes 2.1 thou/uL (0.11-0.59); #Neutrophils 18.9 thou/uL (1.40-6.50); %Basophils 0.2 % (0.0-1.0); %Eosinophils 0.3 % (0.0-10.0); %Lymphocytes 3.6 % (21.0-51.0); %Monocytes 9.5 % (0.0-10.0); %Neutrophils 85.4 % (42.0-75.0); Mean Corpuscular HGB CONC 32.6 g/dL (32.0-36.0); Mean Corpuscular Hemoglobin 30.1 pg (27.0-31.0); Mean Corpuscular Volume 92.3 fl (78.0-98.0); Mean Platelet Volume 9.4 fL (7.4-10.4); Platelet Count 406 10x3/uL (130-400); RBC Distribution Width 14.5 % (11.5-14.5); Red Blood Cell (RBC) Count 3.65 mill/uL (4.70-6.10); White Blood Cell (WBC) Count 22.1 10x3/uL (4.8-10.8)
[2022-12-27] MEDS ORDERED: Furosemide 40 MG/4 ML VIAL ONE (18:24)
[2022-12-27 18:44] LABS: ALT (SGPT) 18 U/L (8-55); AST (SGOT) 11 U/L (5-34); Albumin 3.5 g/dL (3.4-4.8); Alkaline Phosphatase 98 U/L (40-110); Anion Gap 12 mmol/L (10-20); BUN (Urea Nitrogen) 42 mg/dL (8.4-25.7); Bilirubin, Total 0.7 mg/dL (0.2-1.2); Calc. Creatinine Clearance 0 mL/min (70-130); Calcium 8.5 mg/dL (7.8-10.44); Carbon Dioxide 25 mmol/L (23-31); Chloride 96 mmol/L (98-107); Estimated GFR 33; Globulin 2.9 g/dL (2.4-3.5); Glucose 150 mg/dL (83-110); Potassium 4.4 mmol/L (3.5-5.1); Protein, Total 6.4 g/dL (5.8-8.1); Sodium 129 mmol/L (136-145)
[2022-12-27] MEDS ORDERED: Aspirin 325 MG TAB ONE (18:55)
[2022-12-27 19:05] LABS: CKMB 1.1 ng/mL (0-6.6)
[2022-12-27 19:17] LABS: Bacteria/HPF None Seen HPF (None Seen); Bilirubin Negative (Negative); Blood, Urine Negative (Negative); CAUTI Indications for Culture Dysuria,urgency,freq; Clarity Clear (Clear); Glucose, Urine (Dipstick) Normal (Negative); Ketone, Urine Negative (Negative); Leukocyte Negative Leu/uL (Negative); Nitrite Negative (Negative); Protein, Urine (Dipstick) 10 mg/dL (Neg-Trace); RBC/HPF 0-3 HPF (0-3); Specific Gravity, Urine 1.023 (1.002-1.036); Squamous Epithelial 0-3 HPF (0-3); Urobilinogen Normal mg/dL (Less than 2); WBC/HPF 0-3 HPF (0-3)
[2022-12-27 19:19] LABS: Urine Culture Reflex No No
[2022-12-27] MEDS ORDERED: Acetaminophen 325 MG TAB PO PRN (19:51)
[2022-12-27] MEDS ORDERED: Ondansetron PF 4 MG/2 ML Vial IVP PRN (19:51)
[2022-12-27] MEDS ORDERED: Heparin 5,000 UNITS/ML VIAL SC SCH (21:00)
[2022-12-27] MEDS: Cefepime 1 GM in Sodium Chloride 0.9% 100 ML IVPB SCH (21:59)
[2022-12-27 22:02] VITALS: BMI 42.8
[2022-12-27] MEDS ORDERED: VANCOMYCIN 2 GRAM/500 ML BAG 2 GM in Premix Bag 1 BAG IVPB SCH (23:00)
[2022-12-27 23:43] LABS: Anion Gap 15 mmol/L (10-20); BUN (Urea Nitrogen) 43 mg/dL (8.4-25.7); Calc. Creatinine Clearance 51 mL/min (70-130); Calcium 8.8 mg/dL (7.8-10.44); Carbon Dioxide 23 mmol/L (23-31); Chloride 98 mmol/L (98-107); Estimated GFR 35; Glucose 139 mg/dL (83-110); Potassium 4.3 mmol/L (3.5-5.1); Sodium 132 mmol/L (136-145)
[2022-12-27 23:44] LABS: Troponin I 0.026 ng/mL (< 0.028)
[2022-12-28 04:25] LABS: #Basophils 0.1 thou/uL (0.0-0.2); #Eosinphils 0.2 thou/uL (0.0-0.7); #Monocytes 2.3 thou/uL (0.11-0.59); #Neutrophils 14.6 thou/uL (1.40-6.50); %Basophils 0.4 % (0.0-1.0); %Eosinophils 1.1 % (0.0-10.0); %Lymphocytes 5.5 % (21.0-51.0); %Monocytes 12.5 % (0.0-10.0); %Neutrophils 79.5 % (42.0-75.0); Hemoglobin 10.2 g/dL (14.0-18.0); Mean Corpuscular HGB CONC 31.5 g/dL (32.0-36.0); Mean Corpuscular Hemoglobin 29.5 pg (27.0-31.0); Mean Corpuscular Volume 93.6 fl (78.0-98.0); Mean Platelet Volume 9.6 fL (7.4-10.4); Platelet Count 409 10x3/uL (130-400); RBC Distribution Width 14.6 % (11.5-14.5); Red Blood Cell (RBC) Count 3.46 mill/uL (4.70-6.10); White Blood Cell (WBC) Count 18.4 10x3/uL (4.8-10.8)
[2022-12-28 04:58] LABS: Anion Gap 13 mmol/L (10-20); BUN (Urea Nitrogen) 42 mg/dL (8.4-25.7); Calc. Creatinine Clearance 54 mL/min (70-130); Carbon Dioxide 26 mmol/L (23-31); Chloride 99 mmol/L (98-107); Estimated GFR 37; Glucose 123 mg/dL (83-110); Magnesium 2.4 mg/dL (1.6-2.6); Potassium 4.2 mmol/L (3.5-5.1); Sodium 134 mmol/L (136-145)
[2022-12-28] MEDS: Furosemide 40 MG/4 ML VIAL SLOW IVP SCH ×2 (05:56→14:56)
[2022-12-28] MEDS ORDERED: Furosemide 20 MG/2 ML VIAL SLOW IVP SCH (06:00)
[2022-12-28] MEDS: Heparin 5,000 UNITS/ML VIAL SC SCH ×2 (10:09→21:12)
[2022-12-28] MEDS: Cefepime 1 GM in Sodium Chloride 0.9% 100 ML IVPB SCH ×2 (10:10→21:13)
[2022-12-28] MEDS: Aspirin 81 mg Enteric Coated Tablet PO SCH (10:11)
[2022-12-28] MEDS: Carvedilol 6.25 MG TAB PO SCH ×2 (10:11→17:56)
[2022-12-28] MEDS ORDERED: Gabapentin 300 MG CAP PO SCH (10:15)
[2022-12-28] MEDS: Gabapentin 300 MG CAP PO SCH ×2 (14:57→21:12)
[2022-12-28] MEDS: Atorvastatin Calcium 40 MG TAB PO SCH (21:12)
[2022-12-28] MEDS: Sacubitril 24MG/Valsartan 26 MG TAB PO SCH (21:13)
[2022-12-28] MEDS ORDERED: Vancomycin 1 GM in Premix Bag 1 BAG IVPB SCH (23:00)
[2022-12-29 05:13] LABS: #Basophils 0.1 thou/uL (0.0-0.2); #Eosinphils 0.3 thou/uL (0.0-0.7); #Monocytes 1.6 thou/uL (0.11-0.59); #Neutrophils 10.7 thou/uL (1.40-6.50); %Basophils 0.4 % (0.0-1.0); %Eosinophils 2.5 % (0.0-10.0); %Lymphocytes 7.3 % (21.0-51.0); %Monocytes 11.6 % (0.0-10.0); %Neutrophils 77.4 % (42.0-75.0); Hemoglobin 10.3 g/dL (14.0-18.0); Mean Corpuscular HGB CONC 31.8 g/dL (32.0-36.0); Mean Corpuscular Volume 94.5 fl (78.0-98.0); Mean Platelet Volume 9.6 fL (7.4-10.4); Platelet Count 401 10x3/uL (130-400); RBC Distribution Width 14.5 % (11.5-14.5); Red Blood Cell (RBC) Count 3.43 mill/uL (4.70-6.10); White Blood Cell (WBC) Count 13.8 10x3/uL (4.8-10.8)
[2022-12-29 05:46] LABS: Anion Gap 13 mmol/L (10-20); BUN (Urea Nitrogen) 46 mg/dL (8.4-25.7); Calc. Creatinine Clearance 55 mL/min (70-130); Calcium 8.7 mg/dL (7.8-10.44); Carbon Dioxide 28 mmol/L (23-31); Cardiac Risk 2.9 (Less than 4.5); Chloride 100 mmol/L (98-107); Cholesterol 75 mg/dl (< 200 Desired); Estimated GFR 38; Glucose 115 mg/dL (83-110); HDL Cholesterol 26 mg/dL (>60 Neg Risk); LDL Cholesterol, Calculated 39 mg/dL; Magnesium 2.2 mg/dL (1.6-2.6); Sodium 137 mmol/L (136-145); Triglycerides 50 mg/dL (Less than 150)
[2022-12-29] MEDS: Furosemide 40 MG/4 ML VIAL SLOW IVP SCH ×2 (06:21→14:45)
[2022-12-29] MEDS: Carvedilol 6.25 MG TAB PO SCH ×2 (08:53→17:42)
[2022-12-29] MEDS: Heparin 5,000 UNITS/ML VIAL SC SCH ×2 (08:55→20:26)
[2022-12-29] MEDS: Gabapentin 300 MG CAP PO SCH ×3 (08:55→20:25)
[2022-12-29] MEDS: Clopidogrel Bisulfate 75 MG TAB PO SCH (08:55)
[2022-12-29] MEDS: Aspirin 81 mg Enteric Coated Tablet PO SCH (08:55)
[2022-12-29] MEDS: Cefepime 1 GM in Sodium Chloride 0.9% 100 ML IVPB SCH ×2 (08:56→21:52)
[2022-12-29] MEDS: Sacubitril 24MG/Valsartan 26 MG TAB PO SCH ×2 (08:56→20:26)
[2022-12-29] MEDS: Atorvastatin Calcium 40 MG TAB PO SCH (20:25)
[2022-12-30 05:11] LABS: #Basophils 0.1 thou/uL (0.0-0.2); #Eosinphils 0.3 thou/uL (0.0-0.7); #Monocytes 1.3 thou/uL (0.11-0.59); #Neutrophils 7.8 thou/uL (1.40-6.50); %Basophils 0.6 % (0.0-1.0); %Eosinophils 3.1 % (0.0-10.0); %Lymphocytes 9.4 % (21.0-51.0); %Monocytes 12.3 % (0.0-10.0); %Neutrophils 73.7 % (42.0-75.0); Hemoglobin 10.7 g/dL (14.0-18.0); Mean Corpuscular HGB CONC 32.4 g/dL (32.0-36.0); Mean Corpuscular Hemoglobin 30.1 pg (27.0-31.0); Mean Corpuscular Volume 92.7 fl (78.0-98.0); Mean Platelet Volume 9.3 fL (7.4-10.4); Platelet Count 411 10x3/uL (130-400); RBC Distribution Width 14.4 % (11.5-14.5); Red Blood Cell (RBC) Count 3.56 mill/uL (4.70-6.10); White Blood Cell (WBC) Count 10.6 10x3/uL (4.8-10.8)
[2022-12-30 05:47] LABS: Anion Gap 15 mmol/L (10-20); BUN (Urea Nitrogen) 51 mg/dL (8.4-25.7); Calc. Creatinine Clearance 55 mL/min (70-130); Calcium 8.5 mg/dL (7.8-10.44); Carbon Dioxide 27 mmol/L (23-31); Chloride 101 mmol/L (98-107); Estimated GFR 40; Glucose 109 mg/dL (83-110); Magnesium 2.1 mg/dL (1.6-2.6); Potassium 3.7 mmol/L (3.5-5.1); Sodium 139 mmol/L (136-145)
[2022-12-30] MEDS ORDERED: Furosemide 40 MG TAB PO SCH (07:30)
[2022-12-30 07:47] VITALS: BP 98/57; TEMP 97.3
[2022-12-30] MEDS ORDERED: Carvedilol 3.125 MG TAB PO SCH (08:00)
[2022-12-30] MEDS: Aspirin 81 mg Enteric Coated Tablet PO SCH (08:10)
[2022-12-30] MEDS: Gabapentin 300 MG CAP PO SCH (08:10)
[2022-12-30] MEDS: Sacubitril 24MG/Valsartan 26 MG TAB PO SCH (08:10)
[2022-12-30] MEDS: Clopidogrel Bisulfate 75 MG TAB PO SCH (08:10)
[2022-12-30] MEDS: Cefepime 1 GM in Sodium Chloride 0.9% 100 ML IVPB SCH (08:11)
[2022-12-30] MEDS: Heparin 5,000 UNITS/ML VIAL SC SCH (08:11)
== END 2022-12-30 14:00 | disposition home or self-care (01) | DRG 280 ==
LOC: ERS 17:44 → 2NO 19:49
PROVIDERS: ADMIT Internal Medicine; ATTEND Hospitalist
DX: I21.09 ST elevation (STEMI) myocardial infarction involving other coronary artery of anterior wall (principal); I50.23 Acute on chronic systolic (congestive) heart failure; J96.01 Acute respiratory failure with hypoxia; I31.39 Other pericardial effusion (noninflammatory); I13.0 Hypertensive heart and chronic kidney disease with heart failure and stage 1 through stage 4 chronic kidney disease, or unspecified chronic kidney disease; N17.9 Acute kidney failure, unspecified; E87.1 Hypo-osmolality and hyponatremia; I25.10 Atherosclerotic heart disease of native coronary artery without angina pectoris; N18.30 Chronic kidney disease, stage 3 unspecified; G89.29 Other chronic pain; D72.829 Elevated white blood cell count, unspecified; I25.5 Ischemic cardiomyopathy; E11.22 Type 2 diabetes mellitus with diabetic chronic kidney disease; Z79.82 Long term (current) use of aspirin; I25.2 Old myocardial infarction; Z95.5 Presence of coronary angioplasty implant and graft; Z79.899 Other long term (current) drug therapy; Z85.048 Personal history of other malignant neoplasm of rectum, rectosigmoid junction, and anus; Z90.49 Acquired absence of other specified parts of digestive tract; Z87.891 Personal history of nicotine dependence
CPT/HCPCS: 36415; 71045; 80048; 80061; 81001; 82553; 83735; 83880; 83930; 83935; 84300; 84443; 84484; 85025; 85379; 87040; 87081; 93005; 93306; 96374; J0692; J1644; J1940; J3370; J3490

== ENCOUNTER 2024-01-31 11:38 | Outpatient (CLI) | payer MEDICARE | END 2024-01-31 11:39 | disposition home or self-care (01) | LOC: SCSRAD 11:38 | PROVIDERS: ATTEND Family Medicine | DX: M79.604 Pain in right leg (principal) ==

== ENCOUNTER 2025-04-09 19:57 | Inpatient (IN) | payer MEDICARE ==
[2025-04-09] MEDS ORDERED: Ondansetron PF 4 MG/2 ML Vial IVP PRN (22:22)
[2025-04-09] MEDS ORDERED: Acetaminophen 325 MG TAB PO PRN (22:22)
[2025-04-09 22:36] VITALS: BMI 44.4
[2025-04-09] MEDS: Azithromycin 500 MG in Sodium Chloride 0.9% 250 ML 250 ML IVPB SCH (23:04)
[2025-04-10] MEDS: Vancomycin (BATCH) 2.5 GM in Premix 1 BAG IVPB SCH (00:33)
[2025-04-10] MEDS ORDERED: Nitroglycerin 0.4 MG TAB (25 Tab Bottle) SL PRN (01:34)
[2025-04-10 05:00] LABS: Hematocrit 35.9 % (42.0-52.0); Hemoglobin 11.6 g/dL (14.0-18.0); Mean Corpuscular Hemoglobin 30.7 pg (27.0-31.0); Mean Corpuscular Volume 95.0 fL (78.0-98.0); Platelet Count 284 10x3/uL (130-400); Red Blood Cell (RBC) Count 3.78 mill/uL (4.70-6.10); White Blood Cell (WBC) Count 24.25 10x3/uL (4.8-10.8)
[2025-04-10 05:04] LABS: Vancomycin, Random 33.3 ug/mL (See Comment)
[2025-04-10 05:10] LABS: ALT (SGPT) 24 U/L (Less than 45); AST (SGOT) 15 U/L (11-34); Albumin 2.5 g/dL (3.1-4.5); Alkaline Phosphatase 57 U/L (40-110); Anion Gap 14 mmol/L (10-20); BUN (Urea Nitrogen) 40 mg/dL (8.4-25.7); Bilirubin, Total 0.2 mg/dL (0.3-1.2); Calc. Creatinine Clearance 69 mL/min (70-130); Calcium 8.2 mg/dL (7.8-10.44); Carbon Dioxide 26 mmol/L (23-31); Chloride 105 mmol/L (98-107); Globulin 2.6 g/dL (2.4-3.5); Glucose 180 mg/dL (83-110); Potassium 4.4 mmol/L (3.5-5.1); Sodium 141 mmol/L (136-145)
[2025-04-10 05:23] LABS: Platelet Adequacy Comment Platelets Normal; Polychromasia SLIGHT = 2-3 cells HPF (0-2)
[2025-04-10] MEDS: Famotidine 20 MG TAB PO SCH (08:32)
[2025-04-10] MEDS: Gabapentin 300 MG CAP PO SCH ×2 (08:32→12:05)
[2025-04-10] MEDS: Furosemide 40 MG TAB PO SCH (08:33)
[2025-04-10] MEDS: Enoxaparin 40 MG (0.4 mL) SYRINGE SC SCH (08:33)
[2025-04-10] MEDS: Sacubitril 24MG/Valsartan 26 MG TAB PO SCH (08:33)
[2025-04-10] MEDS: Aspirin Chewable 81 MG TAB PO SCH (08:33)
[2025-04-10] MEDS: Carvedilol 6.25 MG TAB PO SCH (08:33)
[2025-04-10] MEDS: Famotidine/PF 20 mg/2ml Vial SLOW IVP SCH (08:33)
[2025-04-10] MEDS ORDERED: Vancomycin 1 GM in Premix 1 BAG IVPB SCH (09:00)
[2025-04-10] MEDS ORDERED: Iopamidol-370 76% 500 ML MDV (1 ML CHARGE) ONE (13:51)
[2025-04-10] MEDS ORDERED: cefTRIAXone\\ROCEPHIN 1 GM in Sodium Chloride 0.9% 100 ML IVPB SCH (18:00)
[2025-04-10] MEDS: Guaifenesin DM 100-10/5 ML UDCUP PO PRN (20:19)
[2025-04-10] MEDS ORDERED: Vancomycin 1.25 GM / NS 250 ML VIAL-2-BAG IVPB SCH (23:59)
[2025-04-11 06:25] LABS: Hematocrit 36.0 % (42.0-52.0); Hemoglobin 11.8 g/dL (14.0-18.0); Mean Corpuscular Hemoglobin 31.1 pg (27.0-31.0); Mean Corpuscular Volume 95.0 fL (78.0-98.0); Platelet Count 293 10x3/uL (130-400); Red Blood Cell (RBC) Count 3.79 mill/uL (4.70-6.10); White Blood Cell (WBC) Count 34.18 10x3/uL (4.8-10.8)
[2025-04-11 06:35] LABS: Anion Gap 12 mmol/L (10-20); BUN (Urea Nitrogen) 39 mg/dL (8.4-25.7); Calc. Creatinine Clearance 75 mL/min (70-130); Calcium 8.5 mg/dL (7.8-10.44); Carbon Dioxide 28 mmol/L (23-31); Chloride 105 mmol/L (98-107); Glucose 150 mg/dL (83-110); Potassium 3.9 mmol/L (3.5-5.1); Sodium 141 mmol/L (136-145)
[2025-04-11 06:56] LABS: Nucleated RBC (Manual Ct) 1 % (0); Platelet Adequacy Comment Platelets Normal; RBC Morphology Within Normal Limits; Smudge Cells 2.9 %
[2025-04-11] MEDS: Carvedilol 3.125 MG TAB PO SCH (15:55)
[2025-04-11] MEDS: Enoxaparin 40 MG (0.4 mL) SYRINGE SC SCH (20:04)
[2025-04-12 06:53] LABS: Hematocrit 38.5 % (42.0-52.0); Hemoglobin 12.6 g/dL (14.0-18.0); Mean Corpuscular Hemoglobin 31.6 pg (27.0-31.0); Mean Corpuscular Volume 96.5 fL (78.0-98.0); Platelet Count 328 10x3/uL (130-400); Red Blood Cell (RBC) Count 3.99 mill/uL (4.70-6.10); White Blood Cell (WBC) Count 30.34 10x3/uL (4.8-10.8)
[2025-04-12 07:04] LABS: Anion Gap 15 mmol/L (10-20); BUN (Urea Nitrogen) 45 mg/dL (8.4-25.7); Calc. Creatinine Clearance 62 mL/min (70-130); Calcium 8.6 mg/dL (7.8-10.44); Carbon Dioxide 28 mmol/L (23-31); Chloride 104 mmol/L (98-107); Glucose 164 mg/dL (83-110); Potassium 4.2 mmol/L (3.5-5.1); Sodium 143 mmol/L (136-145)
[2025-04-12 07:54] LABS: Burr Cells SLIGHT = 2-5 cells HPF (0-1); Platelet Adequacy Comment Platelets Normal; Polychromasia SLIGHT = 2-3 cells HPF (0-2); Smudge Cells 3.0 %; Toxic Granulation MODERATE
[2025-04-12] MEDS: Carvedilol 3.125 MG TAB PO SCH (16:11)
[2025-04-13] MEDS ORDERED: Lidocaine 1% PF 5 ML VIAL ONE (09:26)
[2025-04-13] MEDS ORDERED: Etomidate 40 MG (20 mL) VIAL ONE (09:26)
[2025-04-13] MEDS ORDERED: PROPOFOL 200 MG/20 ML VIAL ONE (09:30)
[2025-04-13 10:23] VITALS: BP 134/95; TEMP 97.5
[2025-04-13] MEDS: predniSONE 20 MG TAB PO SCH (10:41)
== END 2025-04-13 14:47 | disposition home or self-care (01) | DRG 871 ==
LOC: OBS 22:07
PROVIDERS: ADMIT Internal Medicine; ATTEND Internal Medicine
PROC: 0DJ08ZZ Inspection of Upper Intestinal Tract, Via Natural or Artificial Opening Endoscopic (ICD-10-PCS; principal; 2025-04-13)
DX: A41.9 Sepsis, unspecified organism (principal); J18.9 Pneumonia, unspecified organism; J96.01 Acute respiratory failure with hypoxia; J69.0 Pneumonitis due to inhalation of food and vomit; I50.22 Chronic systolic (congestive) heart failure; C78.7 Secondary malignant neoplasm of liver and intrahepatic bile duct; C20 Malignant neoplasm of rectum; Z68.41 Body mass index [BMI] 40.0-44.9, adult; E66.9 Obesity, unspecified; I25.10 Atherosclerotic heart disease of native coronary artery without angina pectoris; N18.30 Chronic kidney disease, stage 3 unspecified; M54.50 Low back pain, unspecified; R73.9 Hyperglycemia, unspecified; R00.1 Bradycardia, unspecified
CPT/HCPCS: 36415; 36416; 74177; 74230; 80048; 80053; 80202; 82378; 83036; 85025; 87070; 87081; 87205; 94640; J0295; J0456; J1650; J2704; J2919; J3373; J7050; J7512; Q9967